=== PATIENT | male | born 1945 | race Two or more races ===

== ENCOUNTER → 2022-10-28 | Emergency (ER) | payer OTHER ==
[~2022-10-28] VITALS: Ht 177.8 cm; Wt 88.5 kg
[~2022-10-28] MED LIST: BENZONATATE200 M1 PO; BUDESONIDE0.5 MG/2 M IH; CANDESARTAN-HC1 EAC1; CLOPIDOGREL BIS75 MG; COZAAR100 MG; FAMOTIDINE20 MG; FARXIGA5 MG; IPRAT-ALBUT 0.5-3 ML IH; LIPITOR20 MG; MEDROLPACK PO; METFORMIN HCL1000 M3; METFORMIN HCL500 MG; MICARDIS80 MG; MUCINEX DM ER1 EAC1 PO; NORVASC5 MG
== END | disposition home or self-care (01) ==
LOC: ER 05:23
DX: J20.9 Acute bronchitis, unspecified (principal); E11.9 Type 2 diabetes mellitus without complications; Z91.041 Radiographic dye allergy status; Z91.013 Allergy to seafood; Z86.79 Personal history of other diseases of the circulatory system; Z87.09 Personal history of other diseases of the respiratory system; Z92.29 Personal history of other drug therapy; Z79.02 Long term (current) use of antithrombotics/antiplatelets; Z79.84 Long term (current) use of oral hypoglycemic drugs; Z20.822 Contact with and (suspected) exposure to COVID-19

== ENCOUNTER 2024-06-10 13:36 | Emergency (ER) | payer OTHER ==
[~2024-06-10] VITALS: Ht 177.8 cm; Wt 78.9 kg
[2024-06-10] MEDS ORDERED: FARXIGA5 MG PO (14:07)
[2024-06-10 15:41] LABS: HEMATOCRIT 45.2 % (39.0-48.0); HEMOGLOBIN 15.7 g/dL (13-16.00); MEAN CELL VOLUME 94.3 fL (80.0-100.00); MEAN CORPUSCULAR HEMOGLOBIN 32.9 pg (27.00-32.0); MEAN CORPUSCULAR HGB CONC 34.8 g/dl (32.0-36.0); PLATELET COUNT 175 K/uL (150-450); RED BLOOD COUNT 4.79 M/uL (4.00-6.00); RED CELL DISTRIBUTION WIDTH 13.9 % (11.5-14.5)
[2024-06-10 15:57] LABS: CALCIUM 9.9 mg/dL (8.5-10.1); CREATININE SERUM 0.96 mg/dL (0.70-1.30); GFR 75.56; POTASSIUM 3.72 mEq/L (3.5-5.1)
[2024-06-10 16:03] LABS: URINE APPEARANCE Clear; URINE BILIRRUBIN Negative (NEGATIVE); URINE BLOOD Negative; URINE COLOR Yellow; URINE LEUKOCYTE Negative; URINE NITRATE Negative; URINE PROTEIN Negative (NEGATIVE)
[2024-06-10 16:06] LABS: URINE RBC 3.8 uL (0.0-20.8)
[2024-06-10 16:08] LABS: URINE BACTERIA 3.7 uL (0.0-1933); URINE EPITHELIAL CELLS 1.2 uL (0.0-38.8); URINE GLUCOSE >=1000 MG/DL (NEGATIVE); URINE WBC 0.4 uL (0.0-23.2)
[2024-06-10 17:55] LABS: ABG PH 7.476 (7.35-7.45); ABG PO2 85.9 mmHg (80-100); ABG pCO2 31.6 mmHg (35-45); BASE EXCESS 0.2 mmol/l
[2024-06-10 17:56] LABS: BICARBONATE 22.8 mmol/l (23-25); Tco2 23.8 mmol/l; allen test SATISFACTORY; o2 21 %; puncture site RADIAL RIGHT
[2024-06-10 17:57] LABS: SaO2 97.2 %
== END 2024-06-10 19:33 | disposition home or self-care (01) ==
LOC: ER 13:37
PROVIDERS: General Practice
DX: R06.02 Shortness of breath (principal); Z20.822 Contact with and (suspected) exposure to COVID-19; Z91.041 Radiographic dye allergy status